=== PATIENT | female | born 1965 | race Caucasian/White ===

== ENCOUNTER 2020-06-25 10:25 | Emergency (ER) | payer SELFPAY ==
[~2020-06-25] VITALS: Ht 185.4 cm; Wt 127.3 kg
[2020-06-25] MEDS ORDERED: IV NORMAL SALINE 1000ML BAG 1,000 ML IV ONE (11:00)
[2020-06-25] MEDS ORDERED: ONDANSETRON PF 4 MG/2 ML VIAL. IVP ONE (11:00)
[2020-06-25 11:07] LABS: BASO % 1 % (0-3); EOS % 1 % (0-3); HEMATOCRIT 38.6 % (36.0-47.0); LYMPH # 1.8 x10^3/uL (1.0-4.8); LYMPH % 45 % (24-48); MEAN CORPUSCULAR HEMOGLOBIN 30 pg (25-35); MEAN CORPUSCULAR HGB CONC 34 g/dL (31-37); MEAN CORPUSCULAR VOLUME 90 fL (79-100); MONO # 0.3 x10^3/uL (0.0-1.1); MONO % 7 % (0-9); NEUT # 1.9 x10^3/uL (1.8-7.7); NEUT % 47 % (31-73); PLATELET COUNT 197 x10^3/uL (140-400); RED BLOOD COUNT 4.28 x10^6/uL (3.50-5.40); RED CELL DISTRIBUTION WIDTH 13.8 % (11.5-14.5); WHITE BLOOD COUNT 4.1 x10^3/uL (4.0-11.0)
[2020-06-25 11:22] LABS: CREATININE 1.1 mg/dL (0.6-1.0); GFR 51.6; POTASSIUM 4.1 mmol/L (3.5-5.1)
--- NOTE | 2020-06-25 11:22 | RAD ---
Single AP view of the chest. Comparison: None. Indication: Shortness of air and cough Findings: The heart is at the upper limits normal. There is no pneumothorax or effusion. No air space or inter stitial disease. Impression: 1. No acute cardiopulmonary process. Electronically signed by: Luis Alfredo Garcia MD (06/25/2020 11:20 AM) [id number]
[2020-06-25 11:27] LABS: ALBUMIN 3.2 g/dL (3.4-5.0); ALBUMIN/GLOBULIN RATIO 0.9 (1.0-1.7); TOTAL BILIRUBIN 0.3 mg/dL (0.2-1.0); TOTAL PROTEIN 6.7 g/dL (6.4-8.2)
[2020-06-25 12:15] LABS: BILIRUBIN,URINE SMALL (NEG); CLARITY,URINE CLEAR; COLOR,URINE AMBER; NITRITE,URINE NEGATIVE (NEG); PROTEIN,URINE 30 mg/dL (NEG-TRACE); UROBILINOGEN,URINE 0.2 mg/dL (0.2 mg/dL)
[2020-06-25 12:24] LABS: BACTERIA,URINE FEW /HPF (0-FEW); RBC,URINE RARE /HPF (0-2)
--- NOTE | 2020-06-25 12:29 | EKG ---
[facility] [address] [place] [address] Test Date: 2020-06-25 Test Time: 11:24:41 Pat Name: DARRYN PRINCE Department: Room: Gender: F [employer]: : 1965 Requested By: CAROLE FRANCIS Order Number: [id number] Reading MD: Measurements Intervals [place] Rate: 71 P: 2 LA: 166 QRS: -21 QRSD: 80 T: 48 QT: 388 QTc: 422 Interpretive Statements SINUS RHYTHM LEFTWARD AXIS R-S TRANSITION ZONE IN V LEADS DISPLACED TO THE LEFT QRS(T) CONTOUR ABNORMALITY CONSISTENT WITH INFERIOR INFARCT PROBABLY OLD ST & T ABNORMALITY, CONSIDER HIGH LATERAL ISCHEMIA OR LEFT VENTRICULAR STRAIN ABNORMAL ECG RI6.02 No previous ECG available for comparison
[2020-06-25 13:12] VITALS: BP 133/85
--- NOTE | 2020-06-25 13:34 | PHYS DOC ---
Past Medical History [place] History[place] Past Surgical History: Cholecystectomy, Other Additional Past Surgical Histo: multiple R knee sx's Smoking Status: Never Smoker Alcohol Use: Rarely General Adult EDM: Chief Complaint: SHORTNESS OF BREATH HPI: HPI: Patient is a 55 year old female who presented to ER due to nonproductive cough, right-sided chest pressure pain with cough, trouble breathing, fever and chill, diarrhea, nasal congestion, sore throat for 5 days. Patient was tested for C OVID-19 yesterday but the result is still pending at this time. Patient took some Tylenol at home before came to hospital so she does not know if she had a fever. Patient denies any abdominal pain. Patient is not sure if anybody she been exposed to with COVID-19 infection. Review of Systems: Review of Systems: Constitutional: Positive for fever and chills. [] Eyes: Denies change in visual acuity. [] HENT: Positive for nasal congestion or sore throat. [] Respiratory: Positive for cough and shortness of breath. [] Cardiovascular: Denies chest pain or edema. [] GI: Denies abdominal pain, positive for nausea, vomiting, and diarrhea. [] : Denies dysuria. [] Musculoskeletal: Denies back pain or joint pain. [] Integument: Denies rash. [] Neurologic: Denies headache, focal weakness or sensory changes. [] Endocrine: Denies polyuria or polydipsia. [] Lymphatic: Denies swollen glands. [] Psychiatric: Denies depression or anxiety. [] Heart Score: C/O Chest Pain: N/A Risk Factors: Risk Factors: DM, Current or recent (<one month) smoker, HTN, HLP, family history of CAD, obesity. Risk Scores: Score 0 - 3: 2.5% MACE over next 6 weeks - Discharge Home Score 4 - 6: 20.3% MACE over next 6 weeks - Admit for Clinical Observation Score 7 - 10: 72.7% MACE over next 6 weeks - Early Invasive Strategies Current Medications: Current Medications Medications (Trade) Dose Ordered Sig/Richard Start Time Stop Time Status Last Admin Dose Admin Ondansetron HCl (Zofran) 4 mg 1X ONCE 06/25/20 11:00 06/25/20 11:01 DC 06/25/20 11:13 4 MG Sodium Chloride 1,000 ml @ 1,000 mls/hr 1X ONCE 06/25/20 11:00 06/25/20 11:59 DC 06/25/20 11:14 1,000 MLS/HR Allergies: Allergies: Allergies Coded Allergies Type Severity Reaction Last Updated Verified erythromycin base Allergy Unknown 06/25/20 Yes Physical Exam: PE: Constitutional: Well developed, well nourished, no acute distress, non-toxic appearance. [] HENT: Normocephalic, atraumatic, bilateral external ears normal, oropharynx moist, no oral exudates, nose normal. [] Eyes: PERRLA, EOMI, conjunctiva normal, no discharge. [] Neck: Normal range of motion, no tenderness, supple, no stridor. [] Cardiovascular:Heart rate regular rhythm, no murmur [] Lungs & Thorax: Bilateral breath sounds clear to auscultation [] Abdomen: Bowel sounds normal, soft, no tenderness, no masses, no pulsatile masses. [] Skin: Warm, dry, no erythema, no rash. [] Back: No tenderness, no CVA tenderness. [] Extremities: No tenderness, no cyanosis, no clubbing, ROM intact, no edema. [] Neurologic: Alert and oriented X 3, normal motor function, normal sensory function, no focal deficits noted. [] Psychologic: Affect normal, judgement normal, mood normal. [] Current Patient Data: Labs: Laboratory Tests Test 06/25/20 10:57 06/25/20 11:59 White Blood Count 4.1 x10^3/uL (4.0-11.0) Red Blood Count 4.28 x10^6/uL (3.50-5.40) Hemoglobin 13.0 g/dL (12.0-15.5) Hematocrit 38.6 % (36.0-47.0) Mean Corpuscular Volume 90 fL (79-100) Mean Corpuscular Hemoglobin 30 pg (25-35) Mean Corpuscular Hemoglobin Concent 34 g/dL (31-37) Red Cell Distribution Width 13.8 % (11.5-14.5) Platelet Count 197 x10^3/uL (140-400) Neutrophils (%) (Auto) 47 % (31-73) Lymphocytes (%) (Auto) 45 % (24-48) Monocytes (%) (Auto) 7 % (0-9) Eosinophils (%) (Auto) 1 % (0-3) Basophils (%) (Auto) 1 % (0-3) Neutrophils # (Auto) 1.9 x10^3/uL (1.8-7.7) Lymphocytes # (Auto) 1.8 x10^3/uL (1.0-4.8) Monocytes # (Auto) 0.3 x10^3/uL (0.0-1.1) Eosinophils # (Auto) 0.0 x10^3/uL (0.0-0.7) Basophils # (Auto) 0.0 x10^3/uL (0.0-0.2) Sodium Level 138 mmol/L (136-145) Potassium Level 4.1 mmol/L (3.5-5.1) Chloride Level 106 mmol/L (98-107) Carbon Dioxide Level 26 mmol/L (21-32) Anion Gap 6 (6-14) Blood Urea Nitrogen 12 mg/dL (7-20) Creatinine 1.1 mg/dL (0.6-1.0) H Estimated GFR (Cockcroft-Gault) 51.6 BUN/Creatinine Ratio 11 (6-20) Glucose Level 88 mg/dL (70-99) Lactic Acid Level 1.4 mmol/L (0.4-2.0) Calcium Level 8.0 mg/dL (8.5-10.1) L Total Bilirubin 0.3 mg/dL (0.2-1.0) Aspartate Amino Transferase (AST) 21 U/L (15-37) Alanine Aminotransferase (ALT) 31 U/L (14-59) Alkaline Phosphatase 112 U/L (46-116) Troponin I Quantitative < 0.017 ng/mL (0.000-0.055) Total Protein 6.7 g/dL (6.4-8.2) Albumin 3.2 g/dL (3.4-5.0) L Albumin/Globulin Ratio 0.9 (1.0-1.7) L Lipase 134 U/L (73-393) Urine Collection Type Unknown Urine Color Leigh Ann Urine Clarity Clear Urine pH 6.0 (<5.0-8.0) Urine Specific Kelly >=1.030 (1.000-1.030) Urine Protein 30 mg/dL (NEG-TRACE) Urine Glucose (UA) Negative mg/dL (NEG) Urine Ketones (Stick) Trace mg/dL (NEG) Urine Blood Negative (NEG) Urine Nitrite Negative (NEG) Urine Bilirubin Small (NEG) Urine Urobilinogen Dipstick 0.2 mg/dL (0.2 mg/dL) Urine Leukocyte Esterase Trace (NEG) Urine RBC Rare /HPF (0-2) Urine WBC 5-10 /HPF (0-4) Urine Squamous Epithelial Cells Mod /LPF Urine Bacteria Few /HPF (0-FEW) Urine Mucus Mod /LPF Laboratory Tests 06/25/20 10:57 Laboratory Tests 06/25/20 10:57 Vital Signs: Vital Signs Date Time Temp Pulse Resp B/P (MAP) Pulse Ox O2 Delivery O2 Flow Rate FiO2 06/25/20 10:42 97.4 94 18 163/96 (118) 98 Room Air 97.4 EKG: EKG: [] Radiology/Procedures: Radiology/Procedures: [][facility] [address] [address] IMAGING REPORT Signed PATIENT: DARRYN PRINCE ACCOUNT: [id number] : 1965 LOCATION: ER AGE: 55 SEX: F EXAM STATUS: PRE ER ORD. PHYSICIAN: CAROLE FRANCIS DO REASON: SOA, COUGH PROCEDURE: PORTABLE CHEST 1V Single AP view of the chest. Comparison: None. Indication: Shortness of air and cough Findings: The heart is at the upper limits normal. There is no pneumothorax or effusion. No air space or interstitial disease. Impression: 1. No acute cardiopulmonary process. Electronically signed by: Luis Alfredo Garcia MD (06/25/2020 11:20 AM) [id number] DICTATED and SIGNED BY: LUIS ALFREDO GARCIA MD DATE: 06/25/20 [id number] 0 Course & Med Decision Making: Course & Med Decision Making Pertinent Labs and Imaging studies reviewed. (See chart for details) Patient is a 55-year-old female who was evaluated in ER due to cough, congestion, fever and chill, nausea vomiting, diarrhea. Her vital signs are stable at this time, her x-ray her chest did not show any infiltration, patient oxygen saturation at 97 to 98% room air. She was stable to be discharged home. She is suspected of COVID-19 infection. Tong Disclaimer: Tong Disclaimer: This electronic medical record was generated, in whole or in part, using a voice recognition dictation system. Departure Departure Impression: Primary Impression: Bronchitis Additional Impression: Person under investigation for COVID-19 Disposition: 01 DC HOME SELF CARE/HOMELESS Condition: STABLE Referrals: UNKNOWN PCP NAME (PCP) PLEASE FOLLOW UP WITH YOUR PCP NEEDED OR IF YOU DON'T HAVE PCP, CALL [facility] [phone] for follow up Patient Instructions: Bronchitis, Viral Syndrome Additional Instructions: You have been tested for or diagnosed with COVID-19. It is an infection caused by a new type of coronavirus. COVID-19 will cause cold-like or mild flu symptoms in most. It can cause more severe symptoms like problems breathing in some. There is no treatment for COVID-19. The body will clear the infection over time. Self-care will help to ease discomfort. Steps to Take: Self-Care Rest as needed. Healthy habits may help you feel better. Steps include: Choose healthy foods including fruits and vegetables. Drink water throughout the day. Get plenty of sleep each night. If you smoke, try to quit. It may ease breathing. Avoid alcohol. Keep Others Healthy The virus can spread to others. Droplets are released every time you sneeze or cough. The droplets can get into the mouth, nose, or eyes of people near you and lead to infection. To lower the chances of spreading COVID-19 to others: Stay at home until your doctor has said it is safe to leave. If you tested positive this will mean staying isolated until both of the following are true: At least 7 days have passed since the start of illness. You are free of fever for at least 72 hours without the use of medicine. During this time: - Avoid public areas, events, or transportation. Do not return to work or school until your doctor has said it is safe to do so. - Call ahead if you need to go to a medical center. Let them know you may have COVID-19. It will help them guide you where to go. They may also ask you to wear a facemask when you come to the office. - If you call for emergency medical services, let them know you may have COVID- 19. While at home: - Try to avoid close contact with others. Stay about 6 feet away. - If possible, spend most of your time in a separate room from others. - Use a face mask if you will be in close contact with others such as sharing a room or vehicle. - Have someone wipe down common surfaces in the home. Use household dining room maid every day on areas like doorknobs, counters, or sinks. - Cough or sneeze into a tissue. Throw the tissue away right after use. If a tissue is not available, cough or sneeze into your elbow. - Wash your hands often. Wash them after sneezing or coughing. Use soap and water and wash for at least 20 seconds. Alcohol based hand wheat cleaner can be used if soap and water is not available. - Do not prepare food for others. Avoid sharing personal items like forks, spoons, or toothbrushes. - Avoid close contact with pets while you are sick. There is no evidence of the virus passing to pets. This is a safety step until more is known about this virus. Isolation can be frustrating. Social interaction can help. Keep in touch with friends and family through phone and tech options. You can still interact with others in your home, just keep a safe distance of about 6 feet. Follow-up: Your doctors office will check in with you to see if there are any changes in your health. You may be asked to keep track of symptoms to share with them. They will also let you know when you are clear to be in public again. Problems to Look Out For: Contact your doctor if your recovery is not going as you expect. Get emergency care if you have problems such as: - Trouble breathing - Nonstop chest pain or pressure - Changes in awareness, confusion, or problems waking - Lips or face have bluish color - Worsening of symptoms If you think you have an emergency, call for emergency medical services right away. As taken from [facility] [place] CAROLE Kraft DO Jun 25, 2020 13:34
== END 2020-06-25 14:13 | disposition home or self-care (01) ==
LOC: ER 10:25 → EDBD 10:25 → ER 14:13
DX: J40 Bronchitis, not specified as acute or chronic (principal); Z20.822 Contact with and (suspected) exposure to COVID-19; R09.81 Nasal congestion; R05 Cough; R50.9 Fever, unspecified; I25.2 Old myocardial infarction; Z90.89 Acquired absence of other organs; Z98.890 Other specified postprocedural states; Z88.0 Allergy status to penicillin
CPT/HCPCS: 36415; 71045; 80053; 81001; 83605; 83690; 84484; 85025; 87040; 87086; 93005; 96361; 96374; 99285; J2405; J7030

== ENCOUNTER 2020-07-01 13:29 | Emergency (ER) | payer SELFPAY ==
[~2020-07-01] VITALS: Ht 185.4 cm; Wt 131.0 kg
[2020-07-01] MEDS ORDERED: methylPREDNISolone SOD SUCC PF 125 MG/2 ML VIAL. IV ONE (14:00)
--- NOTE | 2020-07-01 14:13 | RAD ---
AP chest. HISTORY: Short of air AP view was taken of the chest. Lungs are clear. Heart is normal in size without heart failure. There is no effusion. The aorta is mildly tortuous. IMPRESSION: 1. No acute chest disease. Electronically signed by: Anshul Greer MD (07/01/2020 2:11 PM) [id number]
--- NOTE | 2020-07-01 14:19 | PHYS DOC ---
Past Medical History Past Medical History: [place] Past Surgical History: Cholecystectomy, Other Additional Past Surgical Histo: multiple R knee sx's Smoking Status: Never Smoker Alcohol Use: Rarely General Adult EDM: Chief Complaint: SHORTNESS OF BREATH HPI: HPI: Patient is a 55 year old female who presents with states that today she came in for 2 different reasons the first being that on June 17 she was diagnosed with Covid and on 06/25 she was here and diagnosed with bronchitis and some chest tightness and pain. She states the pain is kind gone away but she still has times where she is having a hard time catching her breath but she when she is up and moving. She also complains of the last 5 weeks of having heavy vaginal bleeding to which she is wearing 2 pads together with large clots and having to change it about 3 times a day. She states she has lower abdominal pressure type pain. She also has epigastric burning. She rates her discomfort at a 7 out of 10. 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 She states that she had been put on control pills to help slow this bleeding. Patient has a history of [place], cholecy stectomy, right knee surgery. Patient denies dizziness, urinary symptoms, abnormal vaginal discharge or smell, sexually transmitted diseases, abdominal pain, vomiting, nausea, headache, vision changes, focal weakness, numbness or tingling Review of Systems: Review of Systems: Constitutional: Denies fever or chills. [] Eyes: Denies change in visual acuity. [] HENT: Denies nasal congestion or sore throat. [] Respiratory: Denies cough. + Exertional shortness of breath. [] Cardiovascular: Denies chest pain or edema. [] GI: + Lower abdominal pressure, + epigastric burning, denies nausea, vomiting, bloody stools or diarrhea. [] : Denies dysuria. [] Musculoskeletal: Denies back pain or joint pain. [] Integument: Denies rash. [] Neurologic: Denies headache, focal weakness or sensory changes. + Dizziness [] Endocrine: Denies polyuria or polydipsia. [] Lymphatic: Denies swollen glands. [] Psychiatric: Denies depression or anxiety. [] Heart Score: C/O Chest Pain: No Risk Factors: Risk Factors: DM, Current or recent (<one month) smoker, HTN, HLP, family history of CAD, obesity. Risk Scores: Score 0 - 3: 2.5% MACE over next 6 weeks - Discharge Home Score 4 - 6: 20.3% MACE over next 6 weeks - Admit for Clinical Observation Score 7 - 10: 72.7% MACE over next 6 weeks - Early Invasive Strategies Current Medications: Current Medications Medications (Trade) Dose Ordered Sig/Richard Start Time Stop Time Status Last Admin Dose Admin Methylprednisolone Sodium Succinate (SOLU-Medrol 125MG VIAL) 125 mg 1X ONCE 07/01/20 14:00 07/01/20 14:02 DC Allergies: Allergies: Allergies Coded Allergies Type Severity Reaction Last Updated Verified erythromycin base Allergy Intermediate 07/01/20 Yes Physical Exam: PE: Constitutional: Well developed, well nourished, no acute distress, non-toxic appearance. [] HENT: Normocephalic, atraumatic, bilateral external ears normal, oropharynx moist, no oral exudates, nose normal. [] Eyes: PERRLA, EOMI, conjunctiva normal, no discharge. [] Neck: Normal range of motion, no tenderness, supple, no stridor. [] Cardiovascular:Heart rate regular rhythm, no murmur [] Lungs & Thorax: Bilateral breath sounds clear to auscultation [] Abdomen: Bowel sounds normal, soft, no tenderness, no masses, no pulsatile masses. [] Skin: Warm, dry, no erythema, no rash. [] Back: No tenderness, no CVA tenderness. [] Extremities: No tenderness, no cyanosis, no clubbing, ROM intact, no edema. [] Neurologic: Alert and oriented X 3, normal motor function, normal sensory function, no focal deficits noted. [] Psychologic: Affect normal, judgement normal, mood normal. Normal physical exam [] EKG: EK and read by Dr. Carreno as sinus rhythm and no STEMI. Radiology/Procedures: Radiology/Procedures: [] Impression: [facility] [address] [place] [address] IMAGING REPORT Signed PATIENT: DARRYN PRINCE ACCOUNT: [id number] : 1965 LOCATION: ER AGE: 55 SEX: F EXAM STATUS: PRE ER ORD. PHYSICIAN: PHOENIX VALDEZ APRN REASON: soa PROCEDURE: PORTABLE CHEST 1V AP chest. HISTORY: Short of air AP view was taken of the chest. Lungs are clear. Heart is normal in size without heart failure. There is no effusion. The aorta is mildly tortuous. IMPRESSION: 1. No acute chest disease. Electronically signed by: Anshul Greer MD (07/01/2020 2:11 PM) [id number] DICTATED and SIGNED BY: ANSHUL GREER MD DATE: 07/01/20 [id number] [facility] [address] [place], [place] [id number] IMAGING REPORT Signed PATIENT: DARRYN PRINCE ACCOUNT: [id number] : 1965 LOCATION: ER AGE: 55 SEX: F EXAM STATUS: REG ER ORD. PHYSICIAN: PHOENIX VALDEZ APRN REASON: WORSENING SHORTNESS OF BREATH AFTER COVID PROCEDURE: CT ANGIO CHEST W ABD PEL W/ Exam: CT of chest, abdomen and pelvis with contrast INDICATION: Worsening shortness of breath after Covid TECHNIQUE: Sequential axial images through the chest, abdomen and pelvis obtained following the administration of 90 mL of Isovue-370 IV contrast. Sagittal and coronal reformatted images were reconstructed from the axial data and reviewed. 3-D reformatted images were reconstructed from the axial data and reviewed. Comparisons: None FINDINGS: Visualized portions of the thyroid are unremarkable. No enlarged mediastinal lymph nodes are identified. Heart size is normal. No pericardial effusion. Thoracic aorta has a normal course and caliber. Pulmonary artery is not enlarged. No pulmonary embolus identified within the main, lobar or segmental pulmonary arteries. Airways are patent. No pneumothorax. Patchy areas of consolidation noted at the peripheral lower lobes bilaterally. No pleural effusion or thickening. Liver, spleen, and adrenals are unremarkable. Gallbladder is absent. There is diffuse pancreatic ductal dilatation down to the level of the pancreatic head without obstructing stone or lesion identified. No per ipancreatic inflammatory changes noted. Kidneys demonstrate symmetric enhancement. No perinephric inflammation or hydronephrosis. No renal or ureteral calculi are identified. Bladder is decompressed not well evaluated. Uterus is nonenlarged. No abnormal adnexal mass. Large and small bowel are unremarkable. Appendix is normal. No free intra- abdominal air or fluid. No obstruction. Abdominal aorta has a normal course and caliber. Abdominal vasculature is patent. No enlarged intra-abdominal lymph nodes are identified. No suspicious osseous lesions or acute fractures. IMPRESSION: 1. No pulmonary embolus identified within the main, lobar or segmental pulmonary arteries. 2. Scattered areas of patchy airspace disease noted at the lower lobes, may represent sequela of prior Covid infection. Correlate for acute infection. 3. Pancreatic ductal dilatation with abrupt cut off at the level of the pancreatic head. Correlation with ERCP to assess for a nonvisualized mass is recommended. Exposure: One or more of the following in the visualized dose reduction techniques were utilized for this examination: 1. Automated exposure control 2. Adjustment of the MA and/or KV according to patient size 3. Use of iterative of reconstructive technique Electronically signed by: Mariel Rubin MD (07/01/2020 4:03 PM) [facility] DICTATED and SIGNED BY: MARIEL RUBIN MD DATE: 07/01/20 [id number] 0 [facility] [address] [place], [place] [id number] IMAGING REPORT Signed PATIENT: DARRYN PRINCE ACCOUNT: [id number] : 1965 LOCATION: ER AGE: 55 SEX: F EXAM STATUS: PRE ER ORD. PHYSICIAN: PHOENIX VALDEZ APRN REASON: soa PROCEDURE: PORTABLE CHEST 1V AP chest. HISTORY: Short of air AP view was taken of the chest. Lungs are clear. Heart is normal in size without heart failure. There is no effusion. The aorta is mildly tortuous. IMPRESSION: 1. No acute chest disease. Electronically signed by: Anshul Greer MD (07/01/2020 2:11 PM) [id number] DICTATED and SIGNED BY: ANSHUL GREER MD DATE: 07/01/20 [id number] 0 [facility] [address] [place] [address] IMAGING REPORT Signed PATIENT: DARRYN PRINCE ACCOUNT: [id number] : 1965 LOCATION: ER AGE: 55 SEX: F EXAM STATUS: REG ER ORD. PHYSICIAN: PHOENIX VALDEZ APRN REASON: HEAVY VAGINAL BLEEDING, WITH PELVIC PAIN PROCEDURE: PELVIS W/TV INDICATION: HEAVY VAGINAL BLEEDING, WITH PELVIC PAIN. Last menstrual period was in April. COMPARISON: None available. TECHNIQUE: Transabdominal and endovaginal sonography was performed FINDINGS: The uterus measures 11.6 x 6.6 x 5.1 cm. The endometrium measures 0.8 cm on endovaginal images. There is no focal myometrial abnormality The right ovary measures 2.9 x 1.4 x 2.3 cm on endovaginal images. The left ovary measures 3.1 x 2.5 x 2.5 cm on endovaginal images. Flow seen to both ovaries. No definite adnexal mass is identified. There is no free fluid. IMPRESSION: Normal sonographic survey of the uterus and adnexa Electronically signed by: John Chery MD (07/01/2020 5:04 PM) [facility] DICTATED and SIGNED BY: JOHN CHERY MD DATE: 07/01/20 [id number] 0 Course & Med Decision Making: Course & Med Decision Making Pertinent Labs and Imaging studies reviewed. (See chart for details) See HPI. Alert and oriented x4. Ambulatory with a steady gait. Skin pink warm and dry. Abdomen is soft but tender epigastric area. Patient does have slight tenderness but states it is more of a pressure type pain that is elicited when I push on her lower abdomen area. No CVA tenderness. Lungs are clear in upper lobes and diminished in lower lobes. She is 96% on room air. [] Dragon Disclaimer: Dragon Disclaimer: This electronic medical record was generated, in whole or in part, using a voice recognition dictation system. NIHSS Stroke Scale NIH Stroke Scale: NIH Stroke Scale Response (Comments) Value Level of Consciousness: 0 Alert/Responsive 0 LOC Questions: 0 Answers both correctly 0 LOC Commands: 0 Performs both tasks 0 Best Gaze: 0 Normal 0 Visual: 0 No visual loss 0 Facial Palsy: 0 Normal, symmetrical 0 Motor - Left Arm 0 No drift 0 Motor - Right Arm 0 No drift 0 Motor - Left Leg 0 No drift 0 Motor: Right Leg 0 No drift 0 Limb Ataxia: 0 Absent 0 Sensory: 0 No loss 0 Best Language: 0 Normal 0 Dysathria: 0 Normal 0 Extinction and Inattention: 0 Normal 0 Total 0 Departure Departure Impression: Primary Impression: Vaginal bleeding Additional Impressions: Epigastric pain Opacity of lung on imaging study Disposition: DC HOME SELF CARE/HOMELESS Condition: STABLE Referrals: UNKNOWN PCP NAME (PCP) PITER CORNEJO Jr, MD Patient Instructions: Dysmenorrhea Additional Instructions: Follow-up with your sheet metal former or the sheet metal former I have referred you to soon as possible. Continue taking the control pills. Take Tylenol for any pain. Drink plenty of fluids. I would take Pepcid for your indigestion. Scripts Amoxicillin (AMOXICILLIN) 500 Mg Capsule 1 CAP PO BID for 10 Days, #20 CAP Prov: PHOENIX VALDEZ APRN 07/01/20 PHOENIX VALDEZ APRN Jul 01, 2020 14:19
[2020-07-01] MEDS ORDERED: IV NORMAL SALINE 1000ML BAG 1,000 ML IV ONE (14:30)
[2020-07-01 14:48] LABS: BASO % 1 % (0-3); EOS % 1 % (0-3); HEMATOCRIT 34.8 % (36.0-47.0); HEMOGLOBIN 11.8 g/dL (12.0-15.5); LYMPH # 1.4 x10^3/uL (1.0-4.8); LYMPH % 27 % (24-48); MEAN CORPUSCULAR HEMOGLOBIN 30 pg (25-35); MEAN CORPUSCULAR HGB CONC 34 g/dL (31-37); MEAN CORPUSCULAR VOLUME 88 fL (79-100); MONO # 0.4 x10^3/uL (0.0-1.1); MONO % 7 % (0-9); NEUT # 3.5 x10^3/uL (1.8-7.7); NEUT % 65 % (31-73); PLATELET COUNT 212 x10^3/uL (140-400); RED BLOOD COUNT 3.95 x10^6/uL (3.50-5.40); RED CELL DISTRIBUTION WIDTH 13.9 % (11.5-14.5); WHITE BLOOD COUNT 5.4 x10^3/uL (4.0-11.0)
[2020-07-01 15:02] LABS: CREATININE 1.1 mg/dL (0.6-1.0); GFR 51.6; POTASSIUM 3.9 mmol/L (3.5-5.1)
[2020-07-01 15:10] LABS: ALBUMIN 2.8 g/dL (3.4-5.0); ALBUMIN/GLOBULIN RATIO 0.7 (1.0-1.7); TOTAL BILIRUBIN 0.3 mg/dL (0.2-1.0); TOTAL PROTEIN 6.6 g/dL (6.4-8.2)
[2020-07-01] MEDS ORDERED: FAMOTIDINE 20 MG/2 ML VIAL IVP ONE (15:15)
[2020-07-01 15:28] LABS: INFLUENZA A PATIENT NEGATIVE (NEGATIVE); INFLUENZA B PATIENT NEGATIVE (NEGATIVE)
[2020-07-01] MEDS ORDERED: IOHEXOL 350 MG/ML 100 ML VIAL. IV ONE (15:30)
[2020-07-01] MEDS ORDERED: CONTRAST GIVEN. MC PRN (15:45)
--- NOTE | 2020-07-01 16:05 | RAD ---
Exam: CT of chest, abdomen and pelvis with contrast INDICATION: Worsening shortness of breath after Covid TECHNIQUE: Sequential axial images through the chest, abdomen and pelvis obtained following the admin istration of 90 mL of Isovue-370 IV contrast. Sagittal and coronal reformatted images were reconstruc christopher from the axial data and reviewed. 3-D reformatted images were reconstructed from the axial data a nd reviewed. Comparisons: None FINDINGS: Visualized portions of the thyroid are unremarkable. No enlarged mediastinal lymph nodes are identifi ed. Heart size is normal. No pericardial effusion. Thoracic aorta has a normal course and caliber. Pulmon [place] artery is not enlarged. No pulmonary embolus identified within the main, lobar or segmental pulmo nary arteries. Airways are patent. No pneumothorax. Patchy areas of consolidation noted at the peripheral lower lobe s bilaterally. No pleural effusion or thickening. Liver, spleen, and adrenals are unremarkable. Gallbladder is absent. There is diffuse pancreatic ductal dilatation down to the level of the pancreatic head without obstru cting stone or lesion identified. No peripancreatic inflammatory changes noted. Kidneys demonstrate symmetric enhancement. No perinephric inflammation or hydronephrosis. No renal or ureteral calculi are identified. Bladder is decompressed not well evaluated. Uterus is nonenlarged. No abnormal adnexal mass. Large and small bowel are unremarkable. Appendix is normal. No free intra-abdominal air or fluid. No obstruction. Abdominal aorta has a normal course and caliber. Abdominal vasculature is patent. No enlarged intra-abdominal lymph nodes are identified. No suspicious osseous lesions or acute fractures. IMPRESSION: 1. No pulmonary embolus identified within the main, lobar or segmental pulmonary arteries. 2. Scattered areas of patchy airspace disease noted at the lower lobes, may represent sequela of jovita or Covid infection. Correlate for acute infection. 3. Pancreatic ductal dilatation with abrupt cut off at the level of the pancreatic head. Correlation with ERCP to assess for a nonvisualized mass is recommended. Exposure: One or more of the following in the visualized dose reduction techniques were utilized for this examination: 1. Automated exposure control 2. Adjustment of the MA and/or KV according to patient size 3. Use of iterative of reconstructive technique Electronically signed by: Mariel Oseguera MD (07/01/2020 4:03 PM) [facility]
[2020-07-01 16:16] LABS: CLARITY,URINE BLOODY; COLOR,URINE RED
[2020-07-01 16:17] LABS: RBC,URINE TNTC /HPF (0-2)
[2020-07-01 16:25] LABS: BACTERIA,URINE 0 /HPF (0-FEW)
[2020-07-01 16:26] LABS: HYALINE CASTS, URINE OCCASIONAL /HPF
--- NOTE | 2020-07-01 16:30 | EKG ---
[facility] [address] [place] [address] Test Date: 2020-07-01 Test Time: 14:11:07 Pat Name: DARRYN PRINCE Department: Room: Gender: F Hris Specialist: : [id number] Requested By: PHOENIX VALDEZ Order Number: [id number] Reading MD: Measurements Intervals [place] Rate: 72 P: -27 [place]: 156 QRS: -14 QRSD: 78 T: 1 QT: 372 QTc: 409 Interpretive Statements SINUS RHYTHM LEFTWARD AXIS QRS(T) CONTOUR ABNORMALITY CONSIDER INFERIOR MYOCARDIAL DAMAGE POSSIBLY ABNORMAL ECG RI6.02 No previous ECG available for comparison
--- NOTE | 2020-07-01 17:07 | RAD ---
INDICATION: HEAVY VAGINAL BLEEDING, WITH PELVIC PAIN. Last menstrual period was in April. COMPARISON: None available. TECHNIQUE: Transabdominal and endovaginal sonography was performed FINDINGS: The uterus measures 11.6 x 6.6 x 5.1 cm. The endometrium measures 0.8 cm on endovaginal images. Th ere is no focal myometrial abnormality The right ovary measures 2.9 x 1.4 x 2.3 cm on endovaginal images. The left ovary measures 3.1 x 2. 5 x 2.5 cm on endovaginal images. Flow seen to both ovaries. No definite adnexal mass is identified. There is no free fluid. IMPRESSION: Normal sonographic survey of the uterus and adnexa Electronically signed by: John Altamirano MD (07/01/2020 5:04 PM) [facility]
[2020-07-01] MEDS ORDERED: AMOX500C PO (17:28)
[2020-07-01 17:56] VITALS: BP 122/87
[2020-07-01] MEDS ORDERED: MECLIZINE HCL 12.5 MG TABLET. PO ONE (18:15)
== END 2020-07-01 18:20 | disposition home or self-care (01) ==
LOC: ER 13:29
DX: N93.9 Abnormal uterine and vaginal bleeding, unspecified (principal); R10.13 Epigastric pain; R07.89 Other chest pain; R06.02 Shortness of breath; I25.2 Old myocardial infarction; Z90.49 Acquired absence of other specified parts of digestive tract; Z98.890 Other specified postprocedural states; Z88.1 Allergy status to other antibiotic agents
CPT/HCPCS: 36415; 71045; 71275; 74177; 76830; 76856; 80053; 81001; 83690; 83880; 84484; 85025; 85379; 87804; 93005; 96361; 96374; 96375; 99285; J2930; J3490; J7030; J8597; Q9967